=== PATIENT | male | born 1980 | race Caucasian/White ===

== ENCOUNTER 2017-08-25 23:59 | Emergency (ER) | payer OTHER ==
[~2017-08-25] VITALS: Ht 175.3 cm; Wt 107.5 kg
[~2017-08-25 23:59] MED LIST: AMOXICILLIN500 M1 PO; NORCO 5-325 TA1 EACH PO; PENICILLIN VK500 MG PO
[2017-08-26] MEDS ORDERED: NEXIUM40 MG PO (00:12)
[2017-08-26 00:34] LABS: ABSOLUTE BASOPHILS 0.1 thou/uL (0.0-0.2); ABSOLUTE EOSINOPHILS 0.4 thou/uL (0.0-0.7); ABSOLUTE LYMPHOCYTES 3.5 thou/uL (0.8-5.3); ABSOLUTE MONOCYTES 0.8 thou/uL (0.0-1.2); ABSOLUTE NEUTROPHILS 5.7 thou/uL (1.6-8.1); BASOPHILS 0.9 %; EOSINOPHILS 3.9 %; HEMATOCRIT 42.7 % (42.0-52.0); HEMOGLOBIN 14.8 gm/dL (14.0-18.0); LYMPHOCYTES 33.5 %; MCH 32.8 pg (26.0-34.0); MCHC 34.5 g/dL (28.0-37.0); MCV 94.8 fL (80.0-100.0); MONOCYTES 7.3 %; MPV 6.9 fl. (7.2-11.1); NUCLEATED RBCS 0 /100WBC; PLATELET COUNT* 239 thou/uL (150-400); POLYS 54.4 %; RDW-CV 13.1 % (10.5-14.5); WBC 10.4 thou/uL (4.0-11.0)
[2017-08-26 00:40] LABS: ANION GAP 11 mmol/L (7-16); BUN 9 mg/dL (7-18); CALCIUM 8.6 mg/dL (8.5-10.1); CHLORIDE 96 mmol/L (98-107); CO2 24 mmol/L (21-32); GLUCOSE 107 mg/dL (70-99); SODIUM 131 mmol/L (136-145)
[2017-08-26 00:47] LABS: ALBUMIN 3.3 g/dL (3.4-5.0); ALKALINE PHOSPHATASE 76 U/L (46-116); SGOT 26 U/L (15-37); SGPT 52 U/L (30-65); TOTAL BILIRUBIN 0.3 mg/dL (<0.1-1.0); TOTAL PROTEIN 6.8 g/dL (6.4-8.2); TROPONIN-I LEVEL <0.06 ng/mL (<0.06)
[2017-08-26] MEDS ORDERED: TESSALON PERLE100 MG PO (01:29)
[2017-08-26 02:16] VITALS: BP 135/89
--- NOTE | 2017-08-26 14:28 | EKG ---
[place] [address] ELECTROCARDIOGRAM REPORT Name: ROSSHARDYBRITTNEY Room: [facility]#: [id number] Admission: 08/25/17 Attend Phys: Discharge: 08/26/17 Date of : 82 Report #: [id number] THIS REPORT FOR: //name// [facility] ED Test Date: 2017-08-26 Test Time: 00:33:54 Pat Name: BRITTNEY CHURCH Department: Room: Gender: M Prison Officer: EVELYN : 1980 Requested By: Karlo Aragon Order Number: [id number] MD: Eric Pickett Measurements Intervals [place] Rate: 92 P: 9 DE: 140 QRS: -11 QRSD: 94 T: 38 QT: 349 QTc: 432 Interpretive Statements Sinus rhythm ST elev, probable normal early repol pattern Baseline wander in lead(s) V2,V3 No previous ECG available for comparison Electronically Signed On 08-26-2017 14:27:49 CDT by Eric Pickett [email or web address] <ELECTRONICALLY SIGNED> By: Eric Pickett MD, [facility]ATED [facility] 08/26/17 1427 0033 0033 Eric Pickett MD, [facility] /EPI
== END 2017-08-26 02:19 | disposition home or self-care (01) ==
LOC: M.ERS 23:59
PROVIDERS: Emergency Medicine Emergency Medical Services
DX: S01.81XA Laceration without foreign body of other part of head, initial encounter (principal); R55 Syncope and collapse; R05 Cough; F17.210 Nicotine dependence, cigarettes, uncomplicated; W01.198A Fall on same level from slipping, tripping and stumbling with subsequent striking against other object, initial encounter; Y93.89 Activity, other specified; Y92.89 Other specified places as the place of occurrence of the external cause; Y99.8 Other external cause status

== ENCOUNTER 2020-05-02 06:53 | Emergency (ER) | payer OTHER ==
[~2020-05-02] VITALS: Ht 177.8 cm; Wt 108.9 kg
[~2020-05-02 06:53] MED LIST changes: +NEXIUM40 MG PO; +TESSALON PERLE100 MG PO
[2020-05-02] MEDS ORDERED: LISINOPRIL10 MG PO (07:12)
[2020-05-02] MEDS ORDERED: CLINDAMYCIN HC150 MG PO (08:03)
[2020-05-02 08:10] VITALS: BP 134/82
== END 2020-05-02 08:12 | disposition home or self-care (01) ==
LOC: M.ERS 06:53
DX: L02.415 Cutaneous abscess of right lower limb (principal); I10 Essential (primary) hypertension; K21.9 Gastro-esophageal reflux disease without esophagitis; F17.210 Nicotine dependence, cigarettes, uncomplicated